=== PATIENT | male | born 1945 | race Caucasian/White ===

== ENCOUNTER 2024-01-30 19:26 | Emergency (ER) | payer OTHER, SELFPAY ==
[2024-01-30] VITALS (15 sets, daily range): BP systolic 121–169; BP diastolic 41–99; PULSE 0–114; RESP 14–31; TEMP 36.1–36.2; O2SAT 85–100; BMI 27.3
--- NOTE | 2024-01-30 19:36 | NURSING ---
1936: ZOFRAN 4Mg IVP Non rebreather 100 %, HR 105, Resp 24 #18 LFA SL Large emesis, oral suction completed per RT 193: Chatman #16 frnch placed, draining clear yellow urine 1938: Etomoidate: 20mg IVP 1939: Succinylcholine : 20mg IVP 1940: Intubated see critical care intervention 1943: OG placed see Critical care intervention
[2024-01-30] MEDS: Succinylcholine Chloride 200 MG/10 ML SYRINGE 80 MG IV (19:37)
[2024-01-30] MEDS: Ondansetron 4 MG/2 ML Vial IV (19:39)
[2024-01-30] MEDS: Etomidate 20 MG/10 ML Vial IV (19:40)
--- NOTE | 2024-01-30 19:45 | EKG12_ITS ---
Test Reason : Blood Pressure : / mmHG Vent. Rate : 075 BPM Atrial Rate : 075 BPM P-R Int : 188 ms QRS Dur : 110 ms QT Int : 406 ms P-R-T Axes : 061 -07 019 degrees QTc Int : 453 ms Normal sinus rhythm Incomplete right bundle branch block Borderline ECG Confirmed by MONALISA FIGUEROA, CHASIDY ([id number]), society editor RAMO RAMEY ([id number]) on 02/05/2024 6:16:09 AM Referred By: TL Confirmed By:ROMERO SHELDON MD
[2024-01-30] MEDS: Midazolam 2 MG/2 ML Syringe IV ×2 (19:48→20:30)
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
--- NOTE | 2024-01-30 20:00 | NURSING ---
Called CT, not ready for pt at his time. EKG completed and chest xray completed.
[2024-01-30 20:01] LABS: Absolute Lymphocyte Count 6.89 X10^3/uL (0.83-4.51); Absolute Neutrophil Count 5.4 X10^3/uL (2.0-7.7); Basophil# 0.11 X10^3/uL; Basophil% 0.8 % (0-1); Eosinophil# 0.66 X10^3/uL; Eosinophils% 4.6 % (0-5); Hematocrit 41.5 % (40-54); Hemoglobin 14.3 g/dL (13.0-16.5); Lymphocyte # 6.89 X10^3/ul (0.83-4.51); Lymphocyte % 47.6 % (19-41); Mean Corp Hgb Conc 34.5 g/dL (32-36); Mean Corpuscular Volume 92.8 fL (80-94); Monocyte# 1.29 X10^3/uL; Monocyte% 8.9 % (0-10); NRBC Flagged by Analyzer 0 % (0-5); Neutrophil # 5.41 X10^3/uL (2.7-7.7); Neutrophil % 37.2 % (47-70); POSITIVE DIFFERENTIAL YES; POSITIVE MORPHOLOGY YES; Platelet Count 229 K/mm3 (150-450); RBC Distribution Width CV 12.8 % (11.6-14.6); RBC Distribution Width SD 43.4 fl (35.1-43.9); Red Blood Count 4.47 M/mm3 (4.6-6.2); White Blood Count 14.5 K/mm3 (4.4-11.0)
[2024-01-30 20:02] LABS: Differential Indicated SCAN CRITERIA MET
[2024-01-30 20:14] LABS: International Normalized Ratio 1.1; Prothrombin Time (Protime)PT. 14.7 SECONDS (11.7-14.9)
[2024-01-30 20:15] LABS: Partial Thromboplast Time 22.4 Seconds (24.1-36.2)
[2024-01-30] MEDS: Propofol 10MG/Ml 1,000 MG/100 ML Bottle 5 MG CONT INF (20:15)
--- NOTE | 2024-01-30 20:15 | NURSING ---
Pt to CT at this time.
[2024-01-30 20:17] LABS: Anion Gap 11 (5-15); BUN 32 mg/dL (7-18); BUN/Creat Ratio 22.5 RATIO (10-20); Chloride 106 mmol/L (98-107); Creatinine, Serum 1.42 mg/dL (0.70-1.30); Estimated Creatinine Clearance 40.11 ml/min; Glucose 114 mg/dL (74-106); Potassium 3.4 mmol/L (3.5-5.1); Sodium Level 139 mmol/L (136-145)
[2024-01-30 20:19] LABS: Alcohol, Blood (Medical)-Serum < 3.0 mg/dL
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
--- NOTE | 2024-01-30 20:20 | CT_ITS ---
INDICATION: trauma EXAMINATION: CT FACIAL BONES - CT Maxillofacial W/O Contrast Injection TECHNIQUE: Helically acquired images were obtained of the facial bones. A radiation dose optimization technique was used for this scan. The protocol utilizes one or more of the following dose reduction techniques: automated exposure control, adjustment of mA and/or kV according to patient size,and/or use of iterative reconstruction technique. IV Contrast dosage and agent: None. RADIATION DOSAGE (If Supplied By Facility): CTDIvol = ( 29.38 ) mGy, DLP = ( 620.92 ) mGycm COMPARISON: FINDINGS: SOFT TISSUES: Right facial and periorbital subcutaneous swelling. No discrete fluid collections. VISUALIZED PARANASAL SINUSES: Diffuse opacities of the paranasal sinuses. VISUALIZED MASTOID AIR CELLS: Clear. FACIAL BONES, MANDIBLE AND TMJs: Slightly depressed right temporal floor fracture. Nondisplaced right zygomatic fracture. Lateral wall fracture of the right orbit. Possible fracture of the anterior wall of the right maxillary sinus extending to the right orbital floor. VISUALIZED DENTITION: No periodontal osseous erosion. ORBITAL CONTENTS: There is gas noted within the right orbit. Pneumocephalus. CT/Sinus/Facial Bone IMPRESSION: Slightly depressed right temporal floor fracture. Nondisplaced right zygomatic fracture. Lateral wall fracture of the right orbit. Possible fracture of the anterior wall of the right maxillary sinus extending to the right orbital floor. Right orbital floor. Pneumocephalus Electronically Signed: Kana Vance DO at 21:28 EDT Reading Location ID and State: [facility] / [place] Tel [phone], Service support ,
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
--- NOTE | 2024-01-30 20:26 | NURSING ---
Pt back from CT.
[2024-01-30 20:34] LABS: Differential Comment SCANNED
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
[2024-01-30 20:47] LABS: CPK Total, Creatine Kinase 179 U/L (39-308); Triglycerides 268 mg/dL
[2024-01-30 21:09] LABS: Amphetamine Urine VISTA NEGATIVE (<1000 ng/mL); Barbiturate Urine VISTA NEGATIVE (< 200 ng/mL); Benzodiazepine Urine VISTA POSITIVE (< 200 ng/mL); Cocaine Urine VISTA NEGATIVE (< 300 ng/mL); Ecstacy Urine VISTA NEGATIVE (< 500 ng/mL); Methadone Urine VISTA NEGATIVE (< 300 ng/mL); PCP Urine VISTA NEGATIVE (< 25 ng/mL); THC Urine VISTA POSITIVE (< 50 ng/mL); Vista UDS pH Range 4
--- NOTE | 2024-01-30 21:30 | NURSING ---
Med flight here. Report given to Percy. Care assumed per med flight.
[2024-01-30] MEDS: Sodium Cl 3% 500 ML 50 ML IV (21:37)
--- NOTE | 2024-01-30 21:38 | NURSING ---
Mis continued per medflight.
--- NOTE | 2024-01-30 21:40 | NURSING ---
Report called to [facility].
--- NOTE | 2024-01-30 21:41 | NURSING ---
Med Flight off unit with pt.
== END 2024-01-30 21:41 | disposition other institution (70) ==
PROVIDERS: Emergency Provider Emergency Medicine; Visit Provider Emergency Medicine
DX: S06.30AA Unspecified focal traumatic brain injury with loss of consciousness status unknown, initial encounter (principal); S02.19XA Other fracture of base of skull, initial encounter for closed fracture; S02.841A Fracture of lateral orbital wall, right side, initial encounter for closed fracture; S02.40EA Zygomatic fracture, right side, initial encounter for closed fracture; S22.43XA Multiple fractures of ribs, bilateral, initial encounter for closed fracture; G93.89 Other specified disorders of brain; R41.82 Altered mental status, unspecified; V18.0XXA Pedal cycle driver injured in noncollision transport accident in nontraffic accident, initial encounter; Y92.018 Other place in single-family (private) house as the place of occurrence of the external cause; I10 Essential (primary) hypertension; Z79.899 Other long term (current) drug therapy; S50.811A Abrasion of right forearm, initial encounter
CPT/HCPCS: 31500; 70450; 70486; 71045; 71260; 72125; 74177; 80048; 80307; 82077; 82550; 84478; 85025; 85610; 85730; 93005; 94002; 96374; 99252; 99285; Q9967; A4216; G0463; J2405